=== PATIENT | female | born 1935 | race Caucasian/White ===

== ENCOUNTER 2020-10-06 07:55 | Emergency (ER) | payer MEDICARE, OTHER ==
[~2020-10-06 07:55] MED LIST: Norepinephrine 4 MG/4 ML VIAL ONE
[2020-10-06] MEDS ORDERED: Sodium Chloride 0.9% 250 ML 250 ML ONE ×2 (08:35→08:54)
[2020-10-06] MEDS ORDERED: Norepinephrine 4 MG/4 ML VIAL ONE (08:35)
[2020-10-06 08:43] LABS: Hemoglobin 12.7 g/dL (12.0-16.0); Mean Corpuscular HGB CONC 31.4 g/dL (32.0-36.0); Mean Corpuscular Hemoglobin 28.2 pg (27.0-31.0); Mean Corpuscular Volume 89.6 fL (78.0-98.0); Mean Platelet Volume 6.9 fL (7.4-10.4); Platelet Count 340 thou/uL (130-400); RBC Distribution Width 12.8 % (11.5-14.5); Red Blood Cell (RBC) Count 4.51 mill/uL (4.20-5.40); White Blood Cell (WBC) Count 21.4 thou/uL (4.8-10.8)
[2020-10-06 08:53] LABS: Manual Diff?? YES
[2020-10-06 08:54] LABS: Anisocytosis SLIGHT = 6-15 cells (100X) (0-5/hpf); Band 4 % (5-11); Eosinophils 1 % (0-10); Lymphocytes 24 % (21-51); MDiff Complete? YES; Monocytes 3 % (0-10); Neutrophil 68 % (42-75); Platelet Morphology Comment Appears Adequate; Poikilocytosis SLIGHT = 6-15 cells (100X) (0-5/hpf)
[2020-10-06] MEDS ORDERED: cefTRIAXone\\ROCEPHIN 1 GM VIAL ONE (08:54)
[2020-10-06] MEDS ORDERED: Azithromycin 500 MG VIAL ONE (08:54)
[2020-10-06] MEDS ORDERED: Sodium Chloride 0.9% 100 ML ONE (08:54)
[2020-10-06] MEDS ORDERED: Sodium Chloride 0.9% 2,000 ML ONE (08:54)
[2020-10-06 09:02] LABS: ALT (SGPT) 16 U/L (8-55); AST (SGOT) 30 U/L (5-34); Albumin 3.7 g/dL (3.4-4.8); Alkaline Phosphatase 63 U/L (40-110); Anion Gap 22 mmol/L (10-20); BUN (Urea Nitrogen) 13 mg/dL (9.8-20.1); Bilirubin, Total 0.8 mg/dL (0.2-1.2); CK (CPK) 37 U/L (29-168); Calc. Creatinine Clearance 0 mL/min (70-130); Calcium 9.2 mg/dL (7.8-10.44); Carbon Dioxide 14 mmol/L (23-31); Chloride 106 mmol/L (98-107); Globulin 2.8 g/dL (2.4-3.5); Glucose 345 mg/dL (83-110); Potassium 3.5 mmol/L (3.5-5.1); Protein, Total 6.5 g/dL (5.8-8.1); Sodium 138 mmol/L (136-145)
--- NOTE | 2020-10-06 09:19 | CT ---
Exam: Head CT without contrast HISTORY: History of stroke. Altered mental status. Fall and loss of consciousness COMPARISON: 05/02/2020 FINDINGS: Hemorrhage: No intraparenchymal hemorrhage or extra-axial hematoma. Brain parenchyma: Expected encephalomalacic gliosis involving the left cerebrum remote insult along t he left occipital parietal lobe and left frontal temporal lobe. Remainder the cerebrum demonstrates preservation of cortical [place] white matter differentiation. Remote lacunar infarct involving th e left lentiform nucleus and left radiata. Ventricular system: Ventricles and sulci are patent and symmetric. Calvarium: Intact. Sinuses and mastoid air cells: Adequate aeration. IMPRESSION: No acute intracranial process.
[2020-10-06 09:20] LABS: CKMB 1.7 ng/mL (0-6.6)
[2020-10-06] MEDS ORDERED: Magnesium 2 GM/50 ML BAG (IN WATER) ONE (10:02)
[2020-10-06] MEDS ORDERED: Sodium Chloride 0.9% 1,000 ML ONE (10:02)
--- NOTE | 2020-10-06 10:25 | RAD ---
CHEST 1 VIEW: HISTORY: Dyspnea. COMPARISON: Radiograph 05/02/2020. FINDINGS: Dense left retrocardiac opacity persists likely on the basis of a hiatal hernia. No confluent airspa ce consolidation, pneumothorax, or effusion. No acute osseous abnormality. Mild dextroscoliosis of the thoracic spine. IMPRESSION: Large hiatal hernia. Otherwise, no acute intrathoracic abnormality. POS: HOME
[2020-10-06] MEDS ORDERED: Aspirin 300 MG Suppository ONE (10:33)
[2020-10-06 10:34] LABS: Clarity Clear (Clear); Glucose, Urine (Dipstick) Negative (Negative); Leukocyte Negative (Negative); Nitrite Negative (Negative); Protein, Urine (Dipstick) Negative (Neg-Trace); Specific Gravity, Urine 1.025 (1.005-1.030); pH, Urine 6.5 (5.0-9.0)
[2020-10-06 10:35] LABS: Bilirubin Negative (Negative); Blood, Urine Negative (Negative); Ketone, Urine Negative (Negative); Urobilinogen 0.2 mg/dL (Less than 2)
[2020-10-06 15:05] LABS: SARS-CoV-2 NAA Rapid Test Not Detected (NotDetected)
== END 2020-10-06 11:04 | disposition short-term general hospital (02) ==
LOC: MADERS 07:55
DX: T68.XXXA Hypothermia, initial encounter (principal); J96.01 Acute respiratory failure with hypoxia; G93.41 Metabolic encephalopathy; E11.9 Type 2 diabetes mellitus without complications
CPT/HCPCS: 0240U; 51702; 70450; 71045; 80053; 81003; 82550; 82553; 83605; 84484; 85025; 93005; 94660; 94760; 96365; 96367; 96375; J0456; J0696; J3475; J3490; J7050; J7620

== ENCOUNTER 2022-12-08 16:57 | Emergency (ER) | payer MEDICARE ==
[2022-12-08] MEDS ORDERED: Acetaminophen 500 MG TAB ONE (17:14)
== END 2022-12-08 19:08 | disposition home or self-care (01) ==
LOC: MADERS 16:57
DX: S00.83XA Contusion of other part of head, initial encounter (principal); E11.9 Type 2 diabetes mellitus without complications; W19.XXXA Unspecified fall, initial encounter
CPT/HCPCS: 70450; 72125

== ENCOUNTER 2023-02-27 16:30 | Outpatient (CLI) | payer MEDICARE | END 2023-02-27 16:31 | disposition home or self-care (01) | LOC: MADCT 16:30 | PROVIDERS: ATTEND Family Medicine | DX: R51.9 Headache, unspecified (principal) | CPT/HCPCS: 70450 ==